=== PATIENT | female | born 1960 | race Caucasian/White ===

== ENCOUNTER 2024-09-25 14:17 | Outpatient (CLI) | payer OTHER, SELFPAY ==
--- NOTE | 2024-09-25 14:22 | MRR_ITS ---
PROCEDURE INFORMATION: Exam: MR Pelvis Without Contrast, Uterus and Adnexa Exam date and time: 09/25/2024 3:42 PM Age: 64 years old Clinical indication: Abnormal findings; Mass/lesion; Ovary and uterus; Patient HX: R/O adnexal mass, planning for surgery in [facility] on kidneys and outside CT showed possible mass on ovary that needed evaluated before surgeon would proceed. ; Additional info: Adnexal mass, stat TECHNIQUE: Imaging protocol: Magnetic resonance imaging of the pelvis without contrast. Exam focused on the uterus, cervix, and adnexa. COMPARISON: CT abdomen pelvis wo con [id number] 05/28/2019 10:08 AM FINDINGS: Uterus: Uterus measures 9 x 3.8 x 3.9 cm. Posterior submucosal fibroid measures 1.7 x 0.7 cm. Endometrium maximally measures 5 mm in thickness. No endocavitary fluid collection. Right ovary/adnexa: Right ovary measures 4 2 x 2.9 x 3.2 cm and contains a 2.7 x 2.4 cm thin-walled cyst and a few additional subcentimeter and smaller cysts up to 1.2 cm in diameter, all with thin soares and no evidence of enhancement. Left ovary/adnexa: Left ovary measures 3.5 x 3.3 x 2.5 cm and appears heterogeneous. A 1.7 x 1.5 cm T2 hypointense area (series 901, image 13) likely represents the follicle remnant, as well as a few cysts up to 1.6 x 1 cm. Intraperitoneal space: No free fluid. Lymph nodes: No enlarged nodes. Bones/joints: Unremarkable. No suspicious lesions. Soft tissues: Unremarkable. MR/MR pelvis wo con* [id number] IMPRESSION: 1. Mildly enlarged left ovary containing a 1.7 x 1.5 cm T2 hypointense nodule, likely fibrotic cyst remnant . However, follow-up contrast-enhanced MRI in 2-3 months recommended to establish stability and exclude any enhancing lesion. A few additional simple cysts up to 1.6 cm also present. 2. Mildly enlarged right ovary containing a dominant 2.7 x 2.4 cm simple cyst and additional smaller simple cysts. 3. 1.7 cm submucosal fibroid.
== END 2024-09-25 14:18 | disposition home or self-care (01) ==
PROVIDERS: Family Provider Family Medicine; PCP Family Medicine; Visit Provider Nurse Practitioner Family
DX: N83.201 Unspecified ovarian cyst, right side (principal); N83.292 Other ovarian cyst, left side
CPT/HCPCS: 72195